=== PATIENT | female | born 1995 | race American Indian/Alaskan Native ===

== ENCOUNTER 2019-03-04 22:34 | Outpatient (CLI) | payer MEDICAID, OTHER ==
[2019-03-04 23:24] VITALS: BP 96/51
[2019-03-04] MEDS ORDERED: LACTATED RINGERS 500 ML IV ONE (23:54)
== END 2019-03-05 00:33 | disposition home or self-care (01) ==
LOC: TRG 22:34
PROVIDERS: ATTEND Obstetrics & Gynecology
DX: O47.02 False labor before 37 completed weeks of gestation, second trimester (principal); Z3A.27 27 weeks gestation of pregnancy
CPT/HCPCS: 59025

== ENCOUNTER 2019-04-04 22:05 | Outpatient (CLI) | payer MEDICAID ==
[2019-04-04 22:34] VITALS: BP 133/59
[2019-04-04] MEDS ORDERED: LACTATED RINGERS 500 ML IV ONE (22:34)
== END 2019-04-04 23:15 | disposition home or self-care (01) ==
LOC: TRG 22:05
PROVIDERS: ATTEND Obstetrics & Gynecology
DX: O26.893 Other specified pregnancy related conditions, third trimester (principal); Z3A.32 32 weeks gestation of pregnancy
CPT/HCPCS: 59025

== ENCOUNTER 2019-05-01 17:07 | Inpatient (IN) | payer MEDICAID ==
[2019-05-01] MEDS ORDERED: LACTATED RINGERS 500 ML IV ONE (18:00)
[2019-05-01] MEDS ORDERED: LACTATED RINGERS 1,000 ML IV SCH ×2 (22:00→23:00)
[2019-05-01] MEDS ORDERED: BICITRA PO ONE (22:48)
[2019-05-01] MEDS ORDERED: PEPCID IV ONE (22:48)
[2019-05-01] MEDS ORDERED: REGLAN IV ONE (22:48)
[2019-05-01] MEDS ORDERED: PITOCin/NS 20 UNIT/1000ML DRIP 20 UNITS/1,000 ML BAG IV SCH (23:00)
[2019-05-01] MEDS ORDERED: ANCEF/STERILE WATER 2 GM/20 ML 2 GM/20 ML SYRINGE IV NR (23:00)
[2019-05-01 23:20] LABS: Basophils % (Auto) 0.2 % (0.0-1.8); Eosinophils % (Auto) 0.1 % (0.0-4.3); Hematocrit 35.8 % (30.3-42.9); Hemoglobin 11.6 gm/dl (10.1-14.3); Lymphocytes # (Auto) 2.6 K/mm3 (1.2-5.4); Lymphocytes % (Auto) 21.6 % (13.4-35.0); Mean Corpuscular HGB Conc 33 % (30-34); Mean Corpuscular Volume 88 fl (79-97); Monocytes % (Auto) 8.7 % (0.0-7.3); Platelet Count 270 K/mm3 (140-440); Red Blood Count 4.08 M/mm3 (3.65-5.03); Red Cell Distribution Width 14.7 % (13.2-15.2)
--- NOTE | 2019-05-02 00:04 | Ultrasound Report ---
US OB limited INDICATION / CLINICAL INFORMATION: SROM. COMPARISON: None available. FINDINGS: Single, viable intrauterine in cephalic presentation. heart rate 148. Amniotic fluid volume is decreased, with a fluid index of 6 cm. Ultrasound estimated gestational age 35 weeks 6 days. IMPRESSION: 1. Decreased amniotic fluid volume, fluid index 6 cm. Signer Name: Karson Florez MD Signed: 05/02/2019 12:00 AM Workstation Name: [id number]
--- NOTE | 2019-05-02 00:15 | History and Physical Report ---
History of Present Illness Date of examination: 05/02/19 Chief complaint: SROM at 430p, limited PNC and Chronic HCV diagnosed ~3years ago. SROM confirmed by Arlene Holguin CNM with pooling and nitrazine. [place]ERETTE confirmed by US on 03/2019. History of present illness: Past History : 3 Term Births: 2 Premature Births: 0 Living Children: 2 Para: 2 Mult. Births: 0 Prev : 0 Prev. attempt? none Aborta: 0 Elect. Ab: 0 Spont. Ab: 0 Ectopics: 0 # 1 Delivery date: 10/13/2015 Weeks Gestation: 38 Delivery type: Hours of labor: 24 Anesthesia type: epidural [place] [facility] [place]: Female weight: 4-0 Name: Genet Comments: Failed induction IUGR # 2 Delivery date: 06/16/2017 Weeks Gestation: 38 labor: no Delivery type: Anesthesia type: spinal [place] [facility] [place] Sex: Male weight: 5-0 Name: Doroteo Past Medical History: Hepatitis C Past Surgical History: (2015) (2016) Family History Summary: Other family member - Has No Family History of Ovarvian Cancer - Entered On: 04/07/2019 Other family member - Has No Family History of Colon Cancer - Entered On: 04/07/2019 Other family member - Has No Family History of Breast Cancer - Entered On: 04/07/2019 Other family member - Has Family History of Stomach Cancer - Entered On: 04/07/2019 Other family member - Has Family History of Lung Cancer - Entered On: 04/07/2019 Other family member - Has Family History of Hypertension - Entered On: 04/07/2019 Other family member - Has Family History of Brain Cancer - Entered On: 04/07/2019 Social History: Marital Status: engaged Children: 2 Occupation: Unemployed Smoking History: Patient currently smokes every day. Risk Factors: Smoked Tobacco Use: Current every day smoker Cigarettes: Yes -- 1/2 pack(s) per day, Year started: 2015 Counseled to quit/cut down: yes Drug use: yes Substance: marijuana HIV high-risk behavior: low risk Alcohol use: yes Drinks per day: social Dietary Counseling: pn yes Past Medical History Surgery (Non-press hand): (2015) (2016) Abnormal PAP: negative Uterine Anomaly: negative Social Hx: Marital Status: engaged Children: 2 Occupation: Unemployed Smoking History: Patient currently smokes every day. Infection History Hx of STD: none HIV Risk Eval: low risk Personal hx. of genital herpes: no Partner hx. of genital herpes: no Genetic History Congenital Heart Defect: Mom: no Dad: no Kath Disease: Mom: no Dad: no Thalassemia Mom: no Dad: no Neural Tube Defect Mom: no Dad: no Down's Syndrome Mom: no Dad: no Suraj-Sachs Mom: no Dad: no Sickle Cell Disease/Trait Mom: no Dad: no Hemophilia Mom: no Dad: no Muscular Dystrophy Mom: no Dad: no Cystic Fibrosis Mom: no Dad: no [place] Chorea Mom: no Dad: no Mental Retardation Mom: no Dad: no Fragile X Mom: no Dad: no Other Genetic/Chromosomal Disorder Mom: no Dad: no Child w/other defect Mom: no Dad: no Enviromental Exposures Xray Exposure: no Medication, drug, or alcohol use since LMP: yes Exposure to Cat Liter: no Active Medications (reviewed today): None Current Allergies (reviewed today): No known allergies Past History - Obstetrical History Expected Date of Delivery: 06/04/19 Actual Gestation: 35 Week(s) 2 Day(s) : 3 Medications and Allergies Allergies Allergy/AdvReac Type Severity Reaction Status Date / Time No Known Allergies Allergy Verified 05/01/19 17:30 Active Meds: Active Medications Lactated Ringer's (Lactated Ringers) 1,000 mls @ 125 mls/hr IV DIRECT SHELDON Oxytocin/Sodium Chloride (Pitocin/Ns 20 Unit/1000ml Drip) 20 units in 1,000 mls @ 0 mls/hr IV TITR SHELDON Lactated Ringer's (Lactated Ringers) 1,000 mls @ 2,250 mls/hr IV PREOP SHELDON Stop: 05/02/19 23:27 - Vital Signs Vital signs: Vital Signs Pulse BP 71 120/77 05/01/19 23:51 05/01/19 23:51 Temp Pulse Resp BP Pulse Ox 71 120/77 05/01/19 23:51 05/01/19 23:51 - Physical Exam Breasts: Positive: deferred Lungs: Positive: Normal air movement Abdomen: Positive: soft. Negative: tenderness Genitourinary (Female): Positive: normal external genitalia (per B. White CNM), normal perenium (per B. White CNM) Vulva: both: normal (per B. White CNM) Vagina: Positive: other (+pooling and nitrazine per B. White CNM) Uterus: Positive: enlarged. Negative: tender Extremities: Positive: normal - Obstetrical Cervical Dilatation: 1 (per B. White CNM) Results Result Diagrams: 05/01/19 22:54 Abnormal lab results 05/01/19 Range/Units 22:54 WBC 11.9 H (4.5-11.0) K/mm3 [place] % (Auto) 8.7 H (0.0-7.3) % [place] # 1.0 H (0.0-0.8) K/mm3 Seg Neutrophils # 8.3 H (1.8-7.7) K/mm3 All other labs normal. Ultrasound: report reviewed Assessment and Plan Limitations of US in 3rd trimester explained, she's aware +/- 21day discrepancy and possible lung immaturity that may require NICU admission, intubation. She voiced understanding and desires to proceed with delivery. - Patient Problems (1) 35 weeks gestation of Current Visit: Yes Status: Acute (2) SROM (spontaneous rupture of membranes) Current Visit: Yes Status: Acute (3) HCV antibody positive Current Visit: Yes Status: Acute (4) Maternal care due to uterine scar from other previous surgery Current Visit: Yes Status: Acute (5) Limited care in third trimester Current Visit: Yes Status: Acute
[2019-05-02] MEDS ORDERED: DEXMEDETOMIDINE IV ONE (00:27)
[2019-05-02] MEDS ORDERED: MARCAINE 0.5% INFILTRATI ONE (00:27)
[2019-05-02] MEDS ORDERED: ZOFRAN ONE (00:51)
[2019-05-02] MEDS ORDERED: LACTATED RINGERS 1,000 ML ONE (00:51)
[2019-05-02] MEDS ORDERED: PHENYLEPHRINE/NS Syringe 1,000 MCG/10 ML IV ONE (00:57)
[2019-05-02] MEDS ORDERED: WATER FOR IRRIG STERILE IR ONE (01:01)
[2019-05-02] MEDS ORDERED: NACL 0.9% IR ONE (01:01)
--- NOTE | 2019-05-02 01:48 | Operative Report ---
Operative Report Operative Report: Date: 05/02/2019 Preoperative diagnosis: 1. Intrauterine at 35 weeks 2. Spontaneous rupture of membranes 3. Previous delivery 2 desires repeat delivery Postoperative diagnosis: 1. Intrauterine at 35 weeks 2. Spontaneous rupture of membranes 3. Previous delivery 2 desires repeat delivery Procedure: Low uterine transverse incision for delivery Surgeon: Emelia Rolon MD Salt Machine Operator: Rey Holguin CNM Anesthesia: Epidural Anesthesiologist: Bao Figueroa M.D. Estimated blood loss: 500 mL Urine out: 50 mL Findings: Live born female . Weight 4 lbs. 13 oz. Apgars 8 at 1 minute and 9 at 5 minutes. Uterus grossly normal, tubes grossly normal, ovaries grossly normal. Procedure: After risk, benefits, complications, consequences and alternatives for this procedure were discussed with patient and consents were reviewed and signed, she was taken to the OR where epidural anesthesia was bolused. She was then placed in the left lateral tilt position, and prepped and draped in the usual sterile fashion. Timeout was performed, and an appropriate level of anesthesia was noted, a Pfannenstiel incision was made and extended to the fascia which was incised and extended in the lateral directions. The overlying fascia was sharply dissected away from the underlying rectus muscles in the superior and inferior directions. The midline was entered bluntly. The vesicouterine fold was incised and with blunt dissection the bladder flap was created. A transverse incision was made in the lower uterine segment and extended in superiolateral direction with finger fractionation. Clear fluid was noted. The was delivered from cephalic OP position. Mouth and nose were bulb suctioned. Spontaneous cry and excellent tone were noted. Cord was doubly clamped and cut. The was given to /resuscitation team present. The placenta was manually extracted. The uterus was then exteriorized and cleared of any further products of conception or placental tissue. The incision was reapproximated using 0 Vicryl in a running interlocking stitch. Grossly normal uterus, tubes and ovaries were noted. Once hemostasis was noted, the uterus was allowed back into the pelvic cavity. The pelvis was irrigated with warm normal saline. Again hemostasis was noted . Tisseel applied for further hemostasis. Interceed was then placed to prevent adhesions. Then attention was turned to the rectus muscles. The rectus muscles reapproximated using 0 Vicryl in a simple interrupted stitch x 3. Once hemostasis was noted, the fascia was reapproximated using 0 Vicryl running stitch fashion. Once hemostasis was noted skin incision was reapproximated using 4-0 Vicryl on a Shaji needle in a subcuticular manner. Counts were correct 3. Patient tolerated procedure well state recovery room in stable condition.
--- NOTE | 2019-05-02 01:53 | Anesthesia Day of Surgery ---
Anesthesia Day of Surgery - Day of Surgery Patient Examined: Yes Patient H&P Reviewed: Yes Patient is NPO: Yes
--- NOTE | 2019-05-02 01:53 | Anesthesia Consultation ---
Anesthesia Consult and Med Hx Date of service: 05/02/19 - Airway Anesthetic Teeth Evaluation: Good ROM Head & Neck: Adequate Mental/Hyoid Distance: Adequate Mallampati Class: Class II Intubation Access Assessment: Probably Good - Pulmonary Exam CTA: Yes - Cardiac Exam Cardiac Exam: RRR - Pre-Operative Health Status ASA Pre-Surgery Classification: ASA2 Proposed Anesthetic Plan: Spinal - Pulmonary Hx Asthma: No COPD: No Hx Pneumonia: No - Cardiovascular System Hx Hypertension: No - Central Nervous System Hx Seizures: No Hx Psychiatric Problems: No - Endocrine Hx Renal Disease: No Hx End Stage Renal Disease: No Hx Hypothyroidism: No Hx Hyperthyroidism: No - Hematic Hx Anemia: No Hx Sickle Cell Disease: No - Other Systems Hx Alcohol Use: Yes
[2019-05-02] MEDS ORDERED: PHENERGAN PO PRN (01:54)
[2019-05-02] MEDS ORDERED: NARCAN 0.4 MG/1 ML IV PRN ×2 (01:54→03:50)
[2019-05-02] MEDS ORDERED: PHENERGAN PR PRN ×2 (01:54→03:50)
[2019-05-02] MEDS ORDERED: ZOFRAN IV PRN ×2 (01:54→03:50)
[2019-05-02] MEDS ORDERED: NUBAIN IV PRN (01:54)
--- NOTE | 2019-05-02 01:54 | Post Anesthesia Evaluation ---
- Post Anesthesia Evaluation Patient Participated: Yes Airway Patent: Yes Stable Respiratory Function: Yes Nausea/Vomiting: No Temp > 96.8F: Yes Pain Manageable: Yes Adequeate Hydration: Yes Anesthesia Complications: No Block Receding Appropriately: Yes
[2019-05-02] MEDS ORDERED: D5LR 1,000 ML IV SCH (03:50)
[2019-05-02] MEDS ORDERED: MILK OF MAGNESIA PO PRN (03:50)
[2019-05-02] MEDS ORDERED: TUCKS PAD TP PRN (03:50)
[2019-05-02] MEDS ORDERED: SODIUM CHLORIDE FLUSH SYRINGE 10 ML IV PRN (03:50)
[2019-05-02] MEDS ORDERED: LANSINOH TP PRN (03:50)
[2019-05-02] MEDS ORDERED: PITOCin/NS 20 UNIT/1000ML DRIP 20 UNITS/1,000 ML BAG IV SCH (03:50)
[2019-05-02] MEDS ORDERED: MYLICON PO PRN (03:50)
[2019-05-02] MEDS ORDERED: MORPHINE IV PRN ×2 (03:50)
[2019-05-02] MEDS ORDERED: TYLENOL PO PRN (03:50)
[2019-05-02] MEDS ORDERED: IBUPROFEN PO PRN (03:50)
[2019-05-02 04:06] LABS: Benzodiazepines Screen,Urine PRESUMPTIVE NEGATIVE; Cannabinoid Screen,Urine PRESUMPTIVE NEGATIVE; Cocaine Screen,Urine PRESUMPTIVE NEGATIVE; Methadone Screen,Urine PRESUMPTIVE NEGATIVE; Opiate Screen,Urine PRESUMPTIVE NEGATIVE
[2019-05-02 04:19] LABS: Amphetamine Screen,Urine PRESUMPTIVE POSITIVE
[2019-05-02] MEDS: ANCEF/NS 1 GM/50 ML 1 GM/50 ML BAG IV SCH ×2 (06:18→13:25)
[2019-05-02] MEDS: TORADOL IV PRN ×2 (06:25→13:24)
[2019-05-02] MEDS: PERCOCET 5/325 PO PRN ×3 (08:30→23:47)
--- NOTE | 2019-05-02 12:53 | Progress Note ---
Assessment and Plan - Patient Problems (1) delivery delivered Onset Date: ~05/02/19 Current Visit: Yes Status: Acute Plan to address problem: Pt sitting in bed holding . Reports she is having pain from the . Has taken pain medication ordered. Denies vaginal bleeding. Dressing clean, dry, and intact. Will advance diet as tolerated. Consulted with Dr. Delcid. Subjective - Subjective Date of service: 05/02/19 (Pt c/o pain meds ordered) Principal diagnosis: Day x 12 hrs s/p C/S Patient reports: voiding normally (clear yellow urine to bedside bag) [place]: doing well Objective - Vital Signs Latest vital signs: Vital Signs Temp Pulse Resp BP BP Pulse Ox 05/02/19 08:51 97.9 F 63 18 117/63 97 05/02/19 06:25 18 05/02/19 03:15 97.3 F L 25 L 18 90/41 05/02/19 02:45 97.4 F L 56 L 15 96/45 97 05/02/19 02:30 97.4 F L 52 L 13 93/42 97 05/02/19 02:15 56 L 11 L 105/33 97 05/02/19 02:00 55 L 11 L 85/28 97 05/02/19 01:55 57 L 14 83/34 97 05/02/19 01:50 64 13 83/33 98 05/02/19 01:45 70 14 87/26 99 05/01/19 23:51 71 120/77 Intake and Output 05/01/19 05/02/19 05/02/19 22:59 06:59 14:59 Intake Total 1300 Output Total 100 Balance 1200 Intake: IV 1300 Output: Urine 100 Other: Weight 123 lb - Exam Breasts: Present: normal Cardiovascular: Present: Regular rate Lungs: Present: Normal air movement Abdomen: Present: normal appearance, soft Uterus: Present: normal Extremities: Present: normal Deep Tendon Reflex Grade: Normal +2 Incision: Present: normal, dry, intact, dressed (to be removed today) - Labs Labs: Abnormal lab results 05/01/19 Range/Units 22:54 WBC 11.9 H (4.5-11.0) K/mm3 [place] % (Auto) 8.7 H (0.0-7.3) % [place] # 1.0 H (0.0-0.8) K/mm3 Seg Neutrophils # 8.3 H (1.8-7.7) K/mm3
[2019-05-02 14:08] LABS: Hematocrit 31.9 % (30.3-42.9); Hemoglobin 10.5 gm/dl (10.1-14.3)
[2019-05-03] MEDS: PERCOCET 5/325 PO PRN ×3 (05:42→23:17)
--- NOTE | 2019-05-03 09:17 | Progress Note ---
Assessment and Plan Pt ambulating in room without difficulty. Has c/o itching "all over" and requests some for it. Reports pain is much better today with medication. VSSAF. PP H/H 10.5/31.9. ABD incision C/D/I with steri strips in place. + bowel sounds and confirms + flatus. Bottle-feeding successfully. - Patient Problems (1) delivery delivered Onset Date: ~05/02/19 Current Visit: Yes Status: Acute Plan to address problem: POD#1. Continue pathway with adequate pain management. May be discharged tomorrow if stable. Subjective - Subjective Date of service: 05/03/19 Principal diagnosis: POD #1 s/p C/S Patient reports: appetite normal, voiding normally, pain well controlled, ambula ting normally [place]: doing well, bottle feeding Objective - Vital Signs Latest vital signs: Vital Signs Temp Pulse Resp BP BP Pulse Ox 05/03/19 05:42 20 05/03/19 01:08 97.9 F 65 18 121/71 98 05/02/19 23:47 20 05/02/19 21:29 98.0 F 84 18 111/55 96 05/02/19 16:53 97.7 F 82 18 115/74 05/02/19 12:10 97.5 F L 18 117/65 Intake and Output 05/02/19 05/03/19 05/03/19 22:59 06:59 14:59 Intake Total 720 240 Output Total 600 400 Balance 120 -160 Intake: Oral 720 240 Output: Urine 600 400 Void 600 400 Other: Total, Intake Amount 240 240 Total, Output Amount 400 400 # Voids Void 1 - Exam Breasts: Present: normal Cardiovascular: Present: Regular rate Lungs: Present: Clear to auscultation, Normal air movement Abdomen: Present: normal appearance, soft, normal bowel sounds Uterus: Present: normal, firm, fundal height at umbilicus Extremities: Present: normal Incision: Present: normal, dry, intact (steri strips in place)
[2019-05-03] MEDS: BENADRYL PO PRN (11:42)
[2019-05-04] MEDS: BENADRYL PO PRN (07:20)
[2019-05-04] MEDS: PERCOCET 5/325 PO PRN ×2 (07:21→16:26)
--- NOTE | 2019-05-04 08:09 | Discharge Summary ---
Providers - Providers Date of Admission: 05/02/19 01:21 Date of discharge: 05/04/19 (pt agrees with d/c) Attending physician: BRITTNEY PAULINO 05/02/19 03:50 Consult to Case Management [CONS] Routine Services Needed at Discharge: Dye Room Helper Notified:: yes Phone number called:: [phone] Time called:: 22:27 Comment:: see chart, + amphetamines Additional Physician Instructions: Limited care (2 visits) Consult to Diamond Sizer And Grader [CONS] Routine Reason For Exam: Primary care physician: [facility] [facility] [facility] Hospitalization Reason for admission: active labor, IUP - , section Procedure: repeat low transverse Episiotomy: none Laceration: none Incision: normal, dry, intact Other procedures: none complications: none Discharge diagnosis: delivery [place] baby: female Hospital course: uncomplicated repeat section @ 35 weeks in labor Limited Care Pt w/o complaint Desires d/c VSS FF below umb Lochia small Incision D&I H&H stable Doing well s/p repeat section P: d/c today with instructions Pt will f/u with [facility] for her postoperative care Desires DEPO for BC Condition at discharge: Good Disposition: DC-01 TO HOME OR SELFCARE - Discharge Diagnoses (1) delivery delivered Status: Acute Comment: RTO 1 week postop care Plan - Discharge Medications Prescriptions: Ibuprofen [Motrin 800 MG tab] 800 mg PO TID PRN #30 tablet PRN Reason: Pain oxyCODONE /ACETAMINOPHEN [Percocet 5/325 mg] 1 - 2 tab PO Q4HR PRN #20 tablet PRN Reason: Pain - Provider Discharge Summary Activity: routine, no sex for 6 weeks, no heavy lifting 4 weeks, no strenuous exercise Diet: routine Instructions: routine Additional instructions: [] Smoking cessation referral if applicable(refer to patient education folder for contact #) [] Refer to [facility] Booklet Call your doctor immediately for: * Fever > 100.5 * Heavy vaginal bleeding ( >1 pad per hour) * Severe persistent headache * Shortness of breath * Reddened, hot, painful area to leg or breast * Drainage or odor from incision. * Keep incision clean and dry at all times and follow doctor's instructions regarding bathing/showering - Follow up plan Follow up: PRIMARY CARE, [Primary Care Provider] - 7 Days PAM RENTERIA CNM [Advanced Practice Nurse] - 7 Days (Congratulations! Please call [phone] to schedule your postoperative visit in 1 week. Take medications as prescribed. Call with concerns. [facility], [address] [facility] [address] )
[2019-05-04] MEDS ORDERED: DEPO-PROVERA (CONTRACEPTION) IM NR (09:00)
[2019-05-04 17:40] VITALS: BP 132/84
== END 2019-05-04 19:38 | disposition home or self-care (01) | DRG 765 ==
LOC: TRG 17:07 → APU 05-02 01:21 → OB 05-02 03:16
PROVIDERS: ADMIT Obstetrics & Gynecology; ATTEND Obstetrics & Gynecology
PROC: 10D00Z1 Extraction of Products of Conception, Low, Open Approach (ICD-10-PCS; principal; 2019-05-02)
DX: O34.211 Maternal care for low transverse scar from previous cesarean delivery (principal); O60.14X0 Preterm labor third trimester with preterm delivery third trimester, not applicable or unspecified; O98.52 Other viral diseases complicating childbirth; O99.334 Smoking (tobacco) complicating childbirth; F17.200 Nicotine dependence, unspecified, uncomplicated; B00.9 Herpesviral infection, unspecified; Z80.8 Family history of malignant neoplasm of other organs or systems; Z37.0 Single live birth; Z3A.35 35 weeks gestation of pregnancy; Z80.1 Family history of malignant neoplasm of trachea, bronchus and lung; Z82.49 Family history of ischemic heart disease and other diseases of the circulatory system
CPT/HCPCS: 36415; 76815; 80307; 85014; 85018; 85025; 86850; 86900; 86901; G0378; C1765; J0690; J1885; J2370; J2405; J2590; J2765; J3490; J7120; J7121

== ENCOUNTER 2019-08-10 15:45 | Emergency (ER) | payer MEDICAID ==
--- NOTE | 2019-08-10 16:20 | Emergency Department Report ---
Chief Complaint: Abdominal Pain Stated Complaint: FLU SX/ABD PAIN Time Seen by Provider: 08/10/19 16:15 - HPI History of Present Illness: This is a 24 y.o. F. that presents to the ER with generalized body aches for 1-2 weeks. Taking ibuprofen and theraflu with no improvement of symptoms. She also reports right flank pain and nausea. Denies urinary frequency, urgency, dysuria, vaginal discharge, fever, or chills. MSE screening note: Focused history and physical exam performed. Due to findings the following was ordered: Labs ED Disposition for MSE Condition: Stable Instructions: Abdominal Pain (ED)
[2019-08-10 17:19] LABS: Hematocrit 33.7 % (30.3-42.9); Hemoglobin 10.8 gm/dl (10.1-14.3); Mean Corpuscular HGB Conc 32 % (30-34); Mean Corpuscular Volume 87 fl (79-97); Platelet Count 362 K/mm3 (140-440); Red Blood Count 3.86 M/mm3 (3.65-5.03); Red Cell Distribution Width 14.7 % (13.2-15.2)
[2019-08-10 17:36] LABS: Alanine Aminotransferase 29 units/L (7-56); Albumin 3.5 g/dL (3.9-5); BUN/Creatinine Ratio 6; Blood Urea Nitrogen 4 mg/dL (7-17); Calcium 9.3 mg/dL (8.4-10.2); Hemolysis Index 8
[2019-08-10 17:48] LABS: HCG Qualitative,Urine Negative (Negative)
[2019-08-10 17:52] LABS: Bacteria,Urine 4+ /HPF (Negative); Bilirubin,Urine NEG (Negative); Blood,Urine NEG (Negative); Color,Urine Yellow (Yellow); Mucus,Urine 1+ /HPF
[2019-08-10] MEDS ORDERED: MORPHINE 4 MG/1 ML INJ IV ONE (17:53)
[2019-08-10] MEDS ORDERED: ONDANSETRON 4 MG/2 ML INJ IV ONE ×2 (17:53→18:12)
[2019-08-10] MEDS ORDERED: SODIUM CHLORIDE 0.9% 1000 ML 1,000 ML IV ONE ×2 (17:53→18:12)
[2019-08-10 18:12] LABS: Basophils % (Manual) 0 % (0.0-1.8); Total Cells Counted 100
[2019-08-10] MEDS ORDERED: fentaNYL 100 MCG/2 ML INJ IV ONE (18:12)
[2019-08-10 18:13] LABS: Anisocytosis Few; Ovalocytes Few
--- NOTE | 2019-08-10 18:16 | Emergency Department Report ---
HPI - General Chief Complaint: Abdominal Pain Time Seen by Provider: 08/10/19 16:15 - HPI HPI: Room 40 The patient is a 24-year-old female presenting with a chief complaint of abdominal pain. The patient states 2 weeks she's had right-sided abdominal pain has been intermittent and sharp/aching in nature. Patient was to nausea but denies vomiting or diarrhea. Patient missed a subjective fever. The patient denies dysuria, hematuria or vaginal discharge. The patient states ibuprofen helps her pain and she took some 2.5 hours prior to arrival. Patient currently gets her pain a score of 4/10 Location: [See above] Duration: [See above] Quality: [See above] Severity: [See above] Timing: [See above] Context: [See above] Modifying factors: [See above] Associated signs and symptoms: [see above] ED Past Medical Hx - Surgical History Additional Surgical History: x3 - Family History Family history: no significant - Social History Smoking Status: Current Every Day Smoker (1/2 pack per day) Substance Use Type: None - Medications Home Medications: Home Medications Medication Instructions Recorded Confirmed Last Taken Type Ibuprofen [Motrin 800 MG tab] 800 mg PO TID PRN #30 tablet 05/02/19 Unknown Rx oxyCODONE /ACETAMINOPHEN [Percocet 1 - 2 tab PO Q4HR PRN #20 tablet 05/02/19 Unknown Rx 5/325 mg] HYDROcodone/APAP 5-325 [Radiant 1 - 2 each PO Q6HR PRN #14 tablet 08/10/19 Unknown Rx 5/325] Ibuprofen [Motrin 800 MG tab] 800 mg PO Q8HR PRN #20 tablet 08/10/19 Unknown Rx levoFLOXacin [Levaquin TAB] 750 mg PO QDAY #10 tablet 08/10/19 Unknown Rx ED Review of Systems ROS: Stated complaint: FLU SX/ABD PAIN Other details as noted in HPI Constitutional: fever (subjective) Eyes: denies: eye pain ENT: denies: throat pain Respiratory: no symptoms reported Cardiovascular: denies: chest pain Endocrine: no symptoms reported Gastrointestinal: abdominal pain, nausea. denies: vomiting, diarrhea Genitourinary: denies: dysuria, hematuria, discharge Musculoskeletal: denies: back pain Neurological: denies: headache Physical Exam - Physical Exam Vital Signs: Vital Signs 08/10/19 16:38 Temperature 98.3 F Pulse Rate 66 Respiratory 18 Rate Blood Pressure 90/55 O2 Sat by Pulse 100 Oximetry Vital Signs 08/10/19 08/10/19 16:38 19:39 Temperature 98.3 F Pulse Rate 66 88 Respiratory 18 16 Rate Blood Pressure 90/55 Blood Pressure 116/68 [Right] O2 Sat by Pulse 100 100 Oximetry Physical Exam: GENERAL: The patient is well-developed well-nourished female lying on stretcher appearing to be in mild discomfort. [] HEENT: Normocephalic. Atraumatic. Extraocular motions are intact. Patient has moist mucous membranes. NECK: Supple. Trachea midline CHEST/LUNGS: Clear to auscultation. There is no respiratory distress noted. HEART/CARDIOVASCULAR: Regular. There is no tachycardia. There is no gallop rub or murmur. ABDOMEN: Abdomen is soft, nontender to palpation but pain located in the right abdomen (patient had been administered analgesia prior to exam). Patient has normal bowel sounds. There is no abdominal distention. SKIN: There is no rash. There is no edema. There is no diaphoresis. NEURO: The patient is awake, alert, and oriented. The patient is cooperative. The patient has normal speech MUSCULOSKELETAL: There is no evidence of acute injury. ED Course Vital Signs 08/10/19 16:38 Temperature 98.3 F Pulse Rate 66 Respiratory 18 Rate Blood Pressure 90/55 O2 Sat by Pulse 100 Oximetry ED Medical Decision Making - Lab Data Result diagrams: 08/10/19 16:37 08/10/19 16:37 Laboratory Tests 08/10/19 08/10/19 08/10/19 16:37 16:37 17:35 WBC 14.3 H RBC 3.86 Hgb 10.8 Hct 33.7 MCV 87 MCH 28 MCHC 32 RDW 14.7 Plt Count 362 [place] % (Auto) Petroleum Engineer Add Manual Diff Complete Total Counted 100 Seg Neuts % (Manual) 76.0 H Band Neutrophils % 0 Lymphocytes % (Manual) 15.0 Reactive Lymphs % (Man) 0 Monocytes % (Manual) 8.0 H Eosinophils % (Manual) 1.0 Basophils % (Manual) 0 Metamyelocytes % 0 Myelocytes % 0 Promyelocytes % 0 Blast Cells % 0 Nucleated RBC % Not Reportable Seg Neutrophils # Man 10.9 H Band Neutrophils # 0.0 Lymphocytes # (Manual) 2.1 Abs React Lymphs (Man) 0.0 Monocytes # (Manual) 1.1 H Eosinophils # (Manual) 0.1 Basophils # (Manual) 0.0 Metamyelocytes # 0.0 Myelocytes # 0.0 Promyelocytes # 0.0 Blast Cells # 0.0 WBC Morphology Not Reportable Hypersegmented Neuts Not Reportable Hyposegmented Neuts Not Reportable Hypogranular Neuts Not Reportable Smudge Cells Not Reportable Toxic Granulation Not Reportable Toxic Vacuolation Not Reportable Dohle Bodies Not Reportable Pelger-Huet Anomaly Not Reportable Mary Lou Rods Not Reportable Platelet Estimate Appears normal Clumped Platelets Not Reportable Plt Clumps, EDTA Not Reportable Large Platelets Not Reportable Giant Platelets Not Reportable Platelet Satelliting Not Reportable Plt Morphology Comment Not Reportable RBC Morphology Not Reportable Dimorphic RBCs Not Reportable Polychromasia Not Reportable Hypochromasia Not Reportable Poikilocytosis Not Reportable Anisocytosis Few Microcytosis Not Reportable Macrocytosis Not Reportable Spherocytes Not Reportable Pappenheimer Bodies Not Reportable Sickle Cells Not Reportable Target Cells Not Reportable Tear Drop Cells Not Reportable Ovalocytes Few Helmet Cells Not Reportable Kamara-Ai Bodies Not Reportable [place] Rings Not Reportable Upson Cells Not Reportable Bite Cells Not Reportable Crenated Cell Not Reportable Elliptocytes Few Acanthocytes (Spur) Not Reportable Rouleaux Not Reportable Hemoglobin C Crystals Not Reportable Schistocytes Not Reportable Malaria parasites Not Reportable Tr Bodies Not Reportable Hem Pathologist Commnt No Sodium 136 L Potassium 3.4 L Chloride 103.1 Carbon Dioxide 18 L Anion Gap 18 BUN 4 L Creatinine 0.7 Estimated GFR > 60 BUN/Creatinine Ratio 6 Glucose 71 Calcium 9.3 Total Bilirubin 0.50 AST 20 ALT 29 Alkaline Phosphatase 98 Total Protein 7.8 Albumin 3.5 L Albumin/Globulin Ratio 0.8 Urine Color Yellow Urine Turbidity Slightly-cloudy Urine pH 5.0 Ur Specific [place] 1.021 Urine Protein 100 mg/dl Urine Glucose (UA) Neg Urine Ketones Neg Urine Blood Neg Urine Nitrite Neg Ur Reducing Substances Not Reportable Urine Bilirubin Neg Urine Ictotest Not Reportable Urine Urobilinogen 2.0 Ur Leukocyte Esterase Mod Urine WBC (Auto) 23.0 H Urine RBC (Auto) 17.0 U Epithel Cells (Auto) 6.0 Urine Bacteria (Auto) 4+ Urine Mucus 1+ Urine HCG, Qual Negative Influenza A (Rapid) Influenza B (Rapid) 08/10/19 18:45 WBC RBC Hgb Hct MCV MCH MCHC RDW Plt Count [place] % (Auto) Add Manual Diff Total Counted Seg Neuts % (Manual) Band Neutrophils % Lymphocytes % (Manual) Reactive Lymphs % (Man) Monocytes % (Manual) Eosinophils % (Manual) Basophils % (Manual) Metamyelocytes % Myelocytes % Promyelocytes % Blast Cells % Nucleated RBC % Seg Neutrophils # Man Band Neutrophils # Lymphocytes # (Manual) Abs React Lymphs (Man) Monocytes # (Manual) Eosinophils # (Manual) Basophils # (Manual) Metamyelocytes # Myelocytes # Promyelocytes # Blast Cells # WBC Morphology Hypersegmented Neuts Hyposegmented Neuts Hypogranular Neuts Smudge Cells Toxic Granulation Toxic Vacuolation Dohle Bodies Pelger-Huet Anomaly Mary Lou Rods Platelet Estimate Clumped Platelets Plt Clumps, EDTA Large Platelets Giant Platelets Platelet Satelliting Plt Morphology Comment RBC Morphology Dimorphic RBCs Polychromasia Hypochromasia Poikilocytosis Anisocytosis Microcytosis Macrocytosis Spherocytes Pappenheimer Bodies Sickle Cells Target Cells Tear Drop Cells Ovalocytes Helmet Cells Kamara-Ai Bodies [place] Rings Upson Cells Bite Cells Crenated Cell Elliptocytes Acanthocytes (Spur) Rouleaux Hemoglobin C Crystals Schistocytes Malaria parasites Tr Bodies Hem Pathologist Commnt Sodium Potassium Chloride Carbon Dioxide Anion Gap BUN Creatinine Estimated GFR BUN/Creatinine Ratio Glucose Calcium Total Bilirubin AST ALT Alkaline Phosphatase Total Protein Albumin Albumin/Globulin Ratio Urine Color Urine Turbidity Urine pH Ur Specific [place] Urine Protein Urine Glucose (UA) Urine Ketones Urine Blood Urine Nitrite Ur Reducing Substances Urine Bilirubin Urine Ictotest Urine Urobilinogen Ur Leukocyte Esterase Urine WBC (Auto) Urine RBC (Auto) U Epithel Cells (Auto) Urine Bacteria (Auto) Urine Mucus Urine HCG, Qual Influenza A (Rapid) Negative Influenza B (Rapid) Negative - Radiology Data Radiology results: report reviewed (CT abdomen and pelvis), image reviewed (CT abdomen and pelvis) [facility] [address] [place] [address] Cat Scan Report Signed Patient: RENAN VIVEROS MR#: [id number] : 1995 Acct:[id number] Age/Sex: 24 / F ADM Date: 08/10/19 Loc: ED Attending Dr: Ordering Physician: RUBIO LESLIE NP Date of Service: 08/10/19 Procedure(s): CT abdomen pelvis w con Accession Number(s): [id number] cc: RUBIO LESLIE NP CT ABDOMEN AND PELVIS WITH CONTRAST INDICATION / CLINICAL INFORMATION: abd pain. TECHNIQUE: Axial CT images were obtained through the abdomen and pelvis after IV contrast. All CT scans at this location are performed using CT dose reduction for ALARA by means of automated exposure control. COMPARISON: None available. FINDINGS: LOWER CHEST: No significant abnormality. LIVER: No significant abnormality. GALLBLADDER: No significant abnormality. BILE DUCTS: No significant abnormality. PANCREAS: No significant abnormality. SPLEEN: No significant abnormality. ADRENALS: No significant abnormality. RIGHT KIDNEY and URETER: No significant abnormality. LEFT KIDNEY and URETER: No significant abnormality. STOMACH and SMALL BOWEL: No significant abnormality. COLON: No significant abnormality. APPENDIX: No significant abnormality. PERITONEUM: No free fluid. No free air. No fluid collection. LYMPH NODES: No significant adenopathy. AORTA and ARTERIES: No significant abnormality. IVC and VEINS: No significant abnormality. URINARY BLADDER: No significant abnormality. REPRODUCTIVE ORGANS: No significant abnormality. ADDITIONAL FINDINGS: Very prominent pelvic veins. SKELETAL SYSTEM: No significant abnormality. IMPRESSION: 1. No significant abnormality. Signer Name: Joseph Stewart MD Signed: 08/10/2019 7:10 PM Workstation Name: [id number] Transcribed By: WG Dictated By: Joseph Stewart MD Electronically Authenticated By: Joseph Stewart MD Signed Date/Time: 08/10/191909 DD/ 07 TD/TT: - Medical Decision Making Patient states she is not breast-feeding. Risk of transmission of narcotic/minutes via breast milk explained. Strong warnings given to return to the ED - Differential Diagnosis pyelonephritis, renal colic, appendicitis, Critical care attestation.: If time is entered above; I have spent that time in minutes in the direct care of this critically ill patient, excluding procedure time. ED Disposition Clinical Impression: Acute abdominal pain, UTI (urinary tract infection), Right flank pain Disposition: DC- TO HOME OR SELFCARE Is pt being admited?: No Does the pt Need Aspirin: No Condition: Stable Instructions: Abdominal Pain (ED) Additional Instructions: Return to the emergency department should you develop worsening symptoms, inability to tolerate food or liquids, high fever or any other concerns Prescriptions: levoFLOXacin [Levaquin TAB] 750 mg PO QDAY #10 tablet Ibuprofen [Motrin 800 MG tab] 800 mg PO Q8HR PRN #20 tablet PRN Reason: Pain, Moderate (4-6) HYDROcodone/APAP 5-325 [Radiant 5/325] 1 - 2 each PO Q6HR PRN #14 tablet PRN Reason: Pain Referrals: YULI MILLER MD [Staff Physician] - 3-5 Days [facility] [Outside] - 3-5 Days Time of Disposition: 19:54
--- NOTE | 2019-08-10 19:14 | Cat Scan Report ---
CT ABDOMEN AND PELVIS WITH CONTRAST INDICATION / CLINICAL INFORMATION: abd pain. TECHNIQUE: Axial CT images were obtained through the abdomen and pelvis after IV contrast. All CT scans at this location are performed using CT dose reduction for ALARA by means of automated exposure control. COMPARISON: None available. FINDINGS: LOWER CHEST: No significant abnormality. LIVER: No significant abnormality. GALLBLADDER: No significant abnormality. BILE DUCTS: No significant abnormality. PANCREAS: No significant abnormality. SPLEEN: No significant abnormality. ADRENALS: No significant abnormality. RIGHT KIDNEY and URETER: No significant abnormality. LEFT KIDNEY and URETER: No significant abnormality. STOMACH and SMALL BOWEL: No significant abnormality. COLON: No significant abnormality. APPENDIX: No significant abnormality. PERITONEUM: No free fluid. No free air. No fluid collection. LYMPH NODES: No significant adenopathy. AORTA and ARTERIES: No significant abnormality. IVC and VEINS: No significant abnormality. URINARY BLADDER: No significant abnormality. REPRODUCTIVE ORGANS: No significant abnormality. ADDITIONAL FINDINGS: Very prominent pelvic veins. SKELETAL SYSTEM: No significant abnormality. IMPRESSION: 1. No significant abnormality. Signer Name: Joseph Stewart MD Signed: 08/10/2019 7:10 PM Workstation Name: [id number]
[2019-08-10] MEDS ORDERED: levoFLOXacin 750 MG TAB PO ONE (19:31)
[2019-08-10 19:40] VITALS: BP 116/68
== END 2019-08-10 20:05 | disposition home or self-care (01) ==
LOC: ED 15:45
DX: N39.0 Urinary tract infection, site not specified (principal); F17.200 Nicotine dependence, unspecified, uncomplicated
CPT/HCPCS: 36415; 74177; 80053; 81001; 81025; 85007; 85025; 87076; 87086; 87186; 87400; 96374; 96375; 99284; J2270; J2405; J7030; Q9967

== ENCOUNTER 2020-02-17 15:11 | Emergency (ER) | payer MEDICAID ==
[2020-02-17 15:16] VITALS: BP 110/43
[2020-02-17] MEDS ORDERED: DIPHtheria,PERTUSSIS(ACELL),TETANUS VACCINE/PF 0.5 ML VIAL IM ONE (15:44)
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
--- NOTE | 2020-02-17 16:11 | XRay Report ---
Right hand, 3 views INDICATION: Pain following injury today FINDINGS: There is an oblique fracture through the distal third of the fifth metacarpal with slight d istraction and palmar angulation. The remainder of the hand is intact. Signer Name: Tong Joseph MD Signed: 02/17/2020 4:07 PM Workstation Name: [id number]
[2020-02-17] MEDS ORDERED: HYDROcodone/ACETAMINOPHEN 5-325 MG TAB PO ONE (17:28)
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
== END 2020-02-17 18:08 | disposition home or self-care (01) ==
LOC: ED 15:11
DX: S62.326A Displaced fracture of shaft of fifth metacarpal bone, right hand, initial encounter for closed fracture (principal); F17.200 Nicotine dependence, unspecified, uncomplicated; Z98.890 Other specified postprocedural states; Z79.1 Long term (current) use of non-steroidal anti-inflammatories (NSAID); Z79.899 Other long term (current) drug therapy; W22.01XA Walked into wall, initial encounter; Y93.89 Activity, other specified; Y92.89 Other specified places as the place of occurrence of the external cause; Y99.8 Other external cause status
CPT/HCPCS: 90471; 90715

== ENCOUNTER 2020-03-06 11:44 | Day surgery (SDC) | payer MEDICAID ==
[~2020-03-06 11:44] MED LIST: CELECOXIB 200 MG CAP PO NR; GABAPENTIN 300 MG CAP PO NR; LACTATED RINGERS 1,000 ML IV SCH; MAGNESIUM OXIDE 400 MG TAB PO SCH; MIDAZOLAM 2 MG/2 ML INJ IV NR
[2020-03-06] MEDS ORDERED: propofoL 200 MG/20 ML VIAL IV ONE (12:28)
[2020-03-06] MEDS ORDERED: HYDROmorphone 1 MG/1 ML INJ ONE (12:28)
[2020-03-06] MEDS ORDERED: LIDOCAINE MPF (2%) 20 MG/1 ML VIAL 5 ML ONE (12:29)
[2020-03-06] MEDS ORDERED: ceFAZolin/STERILE WATER 2 GM/20 ML SYRINGE IV NR (12:30)
--- NOTE | 2020-03-06 12:30 | Anesthesia Day of Surgery ---
Anesthesia Day of Surgery - Day of Surgery Patient Examined: Yes Patient H&P Reviewed: Yes Patient is NPO: Yes
--- NOTE | 2020-03-06 12:30 | Anesthesia Consultation ---
Anesthesia Consult and Med Hx Date of service: 03/06/20 - Airway Anesthetic Teeth Evaluation: Good ROM Head & Neck: Adequate Mental/Hyoid Distance: Adequate Mallampati Class: Class II Intubation Access Assessment: Probably Good - Pulmonary Exam CTA: Yes - Cardiac Exam Cardiac Exam: RRR - Pre-Operative Health Status ASA Pre-Surgery Classification: ASA2 Proposed Anesthetic Plan: General - Pulmonary Hx Smoking: Yes (1/2 PPD SINCE 2015) Hx Respiratory Symptoms: No Hx Sleep Apnea: No (TONIO PRE SCREEN NEGATIVE) - Cardiovascular System Hx Hypertension: No - Central Nervous System CVA: No - Gastrointestinal Hx Gastroesophageal Reflux Disease: No - Endocrine Hx Renal Disease: No Hx Cirrhosis: No Hx Liver Disease: Yes (chronic HCV) Hx Insulin Dependent Diabetes: No Hx Non-Insulin Dependent Diabetes: No Hx Thyroid Disease: No - Other Systems Hx Substance Use: Yes (THC) Hx Obesity: No - Additional Comments Anesthesia Medical History Comments: No hx anesthetic complications.
[2020-03-06] MEDS ORDERED: BUPIVACAINE/PF (0.5%) 5 MG/1 ML 30 ML VIAL INFILTRATI ONE ×2 (13:34→13:44)
[2020-03-06] MEDS ORDERED: SODIUM CHLORIDE 0.9% IRR 1,500 ML BOTTLE IR ONE (13:49)
[2020-03-06] MEDS ORDERED: KETOROLAC 30 MG/1 ML INJ ONE (13:55)
--- NOTE | 2020-03-06 14:07 | Procedure Note ---
Date of procedure: 03/06/20 Pre-op diagnosis: Displaced right fifth metacarpal fracture Post-op diagnosis: same Procedure: Closed reduction insertion of intramedullary nail right fifth metacarpal Procedure Patient was brought to the OR placed on the OR table in supine position follow ing induction with MAC anesthesia the patient's right upper extremity was prepped and draped in the usual sterile manner. A timeout procedure was done to identify the patient and the correct operative site. Using C-arm visualization the right hand was grasped next using traction and manipulation the fracture was seen on on on x-ray and a fixed wing pilot hole was made along the distal aspect of the fifth metacarpal guidewire was inserted into the distal fragment and across the fracture into the proximal fragment next a intramedullary nail was inserted retrograde into the fifth metacarpal again advancement of the IM ruben O nail was visualized via C arm following placement of the IM nail the guidewire was removed the stab wound was repaired, the length of the IM nAIL 40 mm long 3.6 mm diameter. Patient was patient tolerated the procedure no no complications she was sent to postanesthesia recovery stable Anesthesia: MAC Surgeon: SONI GUTIERREZ Estimated blood loss: minimal Pathology: none Condition: stable Disposition: PACU
[2020-03-06] MEDS ORDERED: ONDANSETRON 4 MG/2 ML INJ ONE (14:10)
--- NOTE | 2020-03-06 14:24 | XRay Report ---
INTRAOPERATIVE FLUOROSCOPY: RIGHT FIFTH FINGER INDICATION / CLINICAL INFORMATION: 5TH METACARPAL FRACTURE RT HAND. TECHNIQUE: Intraoperative spot images were obtained during the procedure. FINDINGS: Images show internal fixation of the fifth metacarpal fracture. See operative/procedure note by performing physician for full details. Fluoroscopy Time: 29 seconds. Fluoroscopy Images: 2. Signer Name: Vicente Lucia MD Signed: 03/06/2020 2:19 PM Workstation Name: [id number]
[2020-03-06] MEDS: HYDROmorphone 1 MG/1 ML INJ IV PRN ×2 (14:27→14:40)
[2020-03-06] MEDS ORDERED: HYDROcodone/ACETAMINOPHEN 5-325 MG TAB PO PRN (14:59)
[2020-03-06 15:18] VITALS: BP 116/74
--- NOTE | 2020-03-06 15:48 | Post Anesthesia Evaluation ---
- Post Anesthesia Evaluation Patient Participated: Yes Airway Patent: Yes Stable Respiratory Function: Yes Nausea/Vomiting: No Temp > 96.8F: Yes Pain Manageable: Yes Adequeate Hydration: Yes Anesthesia Complications: No
== END 2020-03-06 11:45 | disposition home or self-care (01) ==
LOC: OR 11:44
PROVIDERS: ATTEND Orthopaedic Surgery
DX: S62.396A Other fracture of fifth metacarpal bone, right hand, initial encounter for closed fracture (principal); K21.9 Gastro-esophageal reflux disease without esophagitis; F17.210 Nicotine dependence, cigarettes, uncomplicated; Z79.899 Other long term (current) drug therapy; Z98.891 History of uterine scar from previous surgery; Z72.89 Other problems related to lifestyle; Z98.890 Other specified postprocedural states; Z80.1 Family history of malignant neoplasm of trachea, bronchus and lung; X58.XXXA Exposure to other specified factors, initial encounter; Y92.89 Other specified places as the place of occurrence of the external cause; Y99.8 Other external cause status; Y93.89 Activity, other specified
CPT/HCPCS: 26608; 73140; 81025; C1713; J1170; J1885; J2250; J2405; J2704; J7120